=== PATIENT | male | born 1955 | race Caucasian/White ===

== ENCOUNTER 2020-07-05 18:32 | Emergency (ER) | payer SELFPAY ==
[2020-07-05] MEDS ORDERED: HYDROCODONE/ACETAMINOPHEN 10-325 MG TABLET PO ONE (20:11)
--- NOTE | 2020-07-05 21:02 | RADIOLOGY REPORT (SQ) ---
EXAM DESCRIPTION: XR FOREARM 2 VIEWS COMPLETED DATE/TME: 07/05/2020 20:13 CLINICAL HISTORY: 65 years, Male, fell on cement, +pain R shoulder/elbow/forearm COMPARISON: None. NUMBER OF VIEWS: 2 TECHNIQUE: Frontal and lateral radiograph are obtained LIMITATIONS: None. FINDINGS: Mild first CMC and triscaphe joint arthrosis is noted. Tiny ossific density is located adjacent to the triquetrum on the frontal projection which could indicate a tiny avulsion fracture fragment of uncertain age. There is also moderate radiocapitellar and ulnotrochlear joint arthrosis with several tiny ossific fragments located adjacent to the medial aspect of the ulnotrochlear joint, age-indeterminate. However, there is cortical disruption involving the posterior aspect of the distal humerus, indicative of a fracture. IMPRESSION: Partially imaged supracondylar fracture involving the distal humerus. Degenerative changes about the visualized portions of the elbow joint and wrist, as above. No definite acute fracture/dislocation involving the radius or ulna. copyright 2010 [employer]- All Rights Reserved
--- NOTE | 2020-07-05 21:05 | RADIOLOGY REPORT (SQ) ---
EXAM DESCRIPTION: XR right SHOULDER 2 VIEWS COMPLETED DATE/TME: 07/05/2020 20:13 CLINICAL HISTORY: 65 years, Male, fell on cement, +pain R shoulder/elbow/forearm COMPARISON: None. NUMBER OF VIEWS: TECHNIQUE: LIMITATIONS: None. FINDINGS: No fracture or dislocation. There are degenerative changes involving the acromioclavicular joint. IMPRESSION: No fracture or dislocation. copyright 2010 [employer]- All Rights Reserved
--- NOTE | 2020-07-05 21:08 | RADIOLOGY REPORT (SQ) ---
EXAM DESCRIPTION: XR right ELBOW 3 VIEWS COMPLETED DATE/TME: 07/05/2020 20:13 CLINICAL HISTORY: 65 years, Male, fell on cement, +pain R shoulder/elbow/forearm COMPARISON: None. NUMBER OF VIEWS: TECHNIQUE: LIMITATIONS: None. FINDINGS: There is fracture involving the distal humerus, with some lateral displacement. There are degenerative changes involving the elbow joint. Mineralization of bone appears normal. IMPRESSION: Fracture of the distal humerus. copyright 2010 [employer]- All Rights Reserved
--- NOTE | 2020-07-05 21:12 | ER Document Report ---
ED Medical Screen (RME) - General Chief Complaint: Fall Stated Complaint: FALL/RIGHT ARM,ELBOW PAIN Time Seen by Provider: 07/05/20 20:05 Primary Care Provider: GLADIS DURAND MD [Primary Care Provider] - Follow up as needed - [facility] Notes: 07/05/20 21:10 65-year-old male presents emergency room for complaints of right shoulder and elbow pain after he fell outside of a [employer] a few hours ago. No head trauma or change in level consciousness not, no blood thinners. No [id number] Tylenol or ibuprofen had been tried. Reports pain worse with movement, nothing makes better. Is not tried any heat or icing. Pain is 5 out of 5 PHYSICAL EXAMINATION: GENERAL: Well-appearing, well-nourished and in no acute distress. LUNGS: Breath sounds clear to auscultation bilaterally and equal. No wheezes rales or rhonchi. HEART: Regular rate and rhythm without murmurs Musculoskeletal: Normal range of motion, no pitting or edema. No cyanosis. Right shoulder pain with palpation. 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 swelling to right elbow, unable to extend right arm due to pain. radial pulses +2 in BUE. NEUROLOGICAL: Cranial nerves grossly intact. Normal speech, normal gait. Normal sensory, motor exams PSYCH: Normal mood, normal affect. SKIN: Warm, Dry, normal turgor, no rashes or lesions noted. - Related Data Allergies/Adverse Reactions: No Known Allergies Allergy (Verified 06/30/14 10:02) Past Medical History - Social History Chew tobacco use (# tins/day): No Frequency of alcohol use: None - Past Medical History Cardiac Medical History: Reports: Hx Heart Attack, Hx Hypercholesterolemia, Hx Hypertension Pulmonary Medical History: Reports: Hx COPD Past Surgical History: Reports: Hx Appendectomy - Immunizations Hx Diphtheria, Pertussis, Tetanus Vaccination: No Physical Exam - Vital signs Vitals: Temp Pulse Resp BP Pulse Ox 98.2 F 54 L 20 120/81 96 07/05/20 18:59 07/05/20 18:59 07/05/20 18:59 07/05/20 18:59 07/05/20 18:59 Course - Vital Signs Vital signs: Temp Pulse Resp BP Pulse Ox 98.1 F 57 L 17 112/71 95 07/05/20 20:00 07/05/20 20:00 07/05/20 20:00 07/05/20 20:00 07/05/20 20:00 Doctor's Discharge - Discharge Referrals: GLADIS DURAND MD [Primary Care Provider] - Follow up as needed
[2020-07-05] MEDS ORDERED: HYDROCODONE/ACETAMINOPHEN 5-325 MG (6 TAB/ER DISP) PO PRN (22:22)
[2020-07-05] MEDS ORDERED: ONDANSETRON ODT 4 MG TAB (6 TAB/ER DISP) PO PRN (22:23)
[2020-07-05] MEDS ORDERED: ONDANSETRON 4 MG TAB.RAPDIS PO ONE (22:32)
[2020-07-05 22:48] VITALS: BP 115/76
--- NOTE | 2020-07-06 01:44 | ER Document Report ---
Entered by CHIDI ADRIAN SCRIBE 07/05/202121 Acting as scribe for:NICOLE HEREDIA DO ED General - General Chief Complaint: Fall Stated Complaint: FALL/RIGHT ARM,ELBOW PAIN Time Seen by Provider: 07/05/20 20:05 Primary Care Provider: GLADIS DURAND MD [Primary Care Provider] - Follow up as needed JACKSON ALAN MD [ACTIVE STAFF] - 07/07/20 Information source: Patient Notes: This 65 year old male patient presents to the emergency department today with right elbow pain after a fall earlier today. Patient states his foot got caught on the pavement in a parking lot and he fell landing on his right elbow. Denies hitting his head or LOC. Denies pain in his bilateral lower extremities, left upper extremity, right shoulder and wrist, chest pain, or shortness of breath. Patient reports mild nausea and some dizziness. - Related Data Allergies/Adverse Reactions: No Known Allergies Allergy (Verified 06/30/14 10:02) Past Medical History - General Information source: Patient - Social History Smoking Status: Never Smoker Cigarette use (# per day): No Chew tobacco use (# tins/day): No Frequency of alcohol use: None Family History: Reviewed & Not Pertinent Patient has homicidal ideation: No - Past Medical History Cardiac Medical History: Reports: Hx Heart Attack, Hx Hypercholesterolemia, Hx Hypertension Pulmonary Medical History: Reports: Hx COPD Past Surgical History: Reports: Hx Appendectomy - Immunizations Hx Diphtheria, Pertussis, Tetanus Vaccination: No Review of Systems - Review of Systems Constitutional: No symptoms reported EENT: No symptoms reported Cardiovascular: See HPI, Dizziness. denies: Chest pain Respiratory: See HPI. denies: Short of breath Gastrointestinal: See HPI, Nausea - mild Genitourinary: No symptoms reported Male Genitourinary: No symptoms reported Musculoskeletal: See HPI, Joint pain - R elbow Skin: No symptoms reported Hematologic/Lymphatic: No symptoms reported Neurological/Psychological: No symptoms reported -: Yes All other systems reviewed and negative Physical Exam - Vital signs Vitals: Temp Pulse Resp BP Pulse Ox 98.2 F 54 L 20 120/81 96 07/05/20 18:59 07/05/20 18:59 07/05/20 18:59 07/05/20 18:59 07/05/20 18:59 - General General appearance: Appears well, Alert - HEENT Head: Normocephalic, Atraumatic Eyes: Normal Pupils: PERRL - Respiratory Respiratory status: No respiratory distress Chest status: Nontender Breath sounds: Normal Chest palpation: Normal - Cardiovascular Rhythm: Regular Heart sounds: Normal auscultation Murmur: No - Abdominal Inspection: Obese Distension: No distension Bowel sounds: Normal Tenderness: Nontender - Back Back: Normal, Nontender - Extremities General lower extremity: Normal inspection. No: Edema Notes: Moderate sized hematoma on the right elbow with some joint effusion and ecchymosis. No lacerations. Distal sensation intact. Brisk capillary refill distally. Limited ROM of the RUE due to pain. No tenderness with palpation to the right hand, wrist, or shoulder. Normal inspection of LUE. - Neurological Neuro grossly intact: Yes Cognition: Normal Orientation: AAOx4 [place] Coma Scale Eye Opening: Spontaneous [place] Coma Scale Verbal: Oriented [place] Coma Scale Motor: Obeys Commands [place] Coma Scale Total: 15 Speech: Normal - Psychological Associated symptoms: Normal affect, Normal mood - Skin Skin Temperature: Warm Skin Moisture: Dry Skin Color: Normal Course - Re-evaluation Re-evalutation: 07/05/20 22:15 MDM 65 year old right handed male caught his foot while walking and fell onto his right arm/ side a short time prior to arrival. Metaphaseal humerus fx. No wrist or shoulder pain. Splinted and exam after splint NVI and wrist and hand are warm with good movement and nl cap refill. - Vital Signs Vital signs: Temp Pulse Resp BP Pulse Ox 98.4 F 62 18 115/76 98 07/05/20 22:46 07/05/20 22:46 07/05/20 22:46 07/05/20 22:46 07/05/20 22:46 Discharge - Discharge Clinical Impression: Supracondylar fracture of humerus Qualifiers: Encounter type: initial encounter Fracture type: closed Laterality: right Qualified Code(s): S42.411A - Displaced simple supracondylar fracture without intercondylar fracture of right humerus, initial encounter for closed fracture Condition: Good Disposition: HOME, SELF-CARE Instructions: Ice & Elevation ([facility]), Ice Packs ([facility]), Supracondylar Fracture of the Elbow ([facility]) Additional Instructions: See Dr. Alan in follow up at 0800. Please return here for increased pain, persistent vomiting, or other problems or concerns. Referrals: GLADIS DURAND MD [Primary Care Provider] - Follow up as needed JACKSON ALAN MD [ACTIVE STAFF] - 07/07/20 I personally performed the services described in the documentation, reviewed and edited the documentation which was dictated to the scribe in my presence, and it accurately records my words and actions.
== END 2020-07-05 22:46 | disposition home or self-care (01) ==
LOC: ER 18:32
DX: S42.411A Displaced simple supracondylar fracture without intercondylar fracture of right humerus, initial encounter for closed fracture (principal); W01.0XXA Fall on same level from slipping, tripping and stumbling without subsequent striking against object, initial encounter; Y92.481 Parking lot as the place of occurrence of the external cause; R11.0 Nausea; R42 Dizziness and giddiness; I10 Essential (primary) hypertension; I25.2 Old myocardial infarction; J44.9 Chronic obstructive pulmonary disease, unspecified
CPT/HCPCS: 99284; 73080; 73090; 73030; 29105; S0119

== ENCOUNTER 2020-07-12 11:59 | Day surgery (SDC) | payer SELFPAY ==
[~2020-07-12 11:59] MED LIST: CEFAZOLIN 2 GM/D5W RTU 2 GM/50 ML RTUPB IV PRN; SUCCINYLCHOLINE CHLORIDE INJ 200 MG/10 ML VIAL ONE
[2020-07-12] MEDS ORDERED: CEFAZOLIN 2 GM/D5W RTU 2 GM/50 ML RTUPB IV ONE (12:06)
--- NOTE | 2020-07-12 12:44 | PDOC PROGRESS REPORT ---
Subjective Progress Note for:: 07/12/20 Subjective:: Patient sustained a fall onto his right elbow resulting in a right lateral condyle fracture. Patient was seen in the office at which point treatment options were discussed including operative versus nonoperative intervention details of x-rays were also explained at that time. After discussing risk and benefits decision was made to proceed with operative intervention. Patient denied antecedent right elbow pain prior to his fall. Reason For Visit: S42.451A DISP FX OF LATERAL CONDYLE OF RIGHT HUMER Physical Exam Vital Signs: Intake & Output 07/11/20 07/12/20 07/13/20 06:59 06:59 06:59 Weight 154.2 kg General appearance: PRESENT: no acute distress, obese, well-developed, well- nourished Head exam: PRESENT: atraumatic, normocephalic Eye exam: PRESENT: conjunctiva pink, EOMI, PERRLA. ABSENT: scleral icterus Ear exam: PRESENT: normal external ear exam Mouth exam: PRESENT: moist, tongue midline Neck exam: PRESENT: full ROM. ABSENT: carotid bruit, JVD, lymphadenopathy, thyromegaly Cardiovascular exam: PRESENT: RRR. ABSENT: diastolic murmur, rubs, systolic murmur Pulses: PRESENT: normal dorsalis pedis pul, +2 pedal pulses bilateral Vascular exam: PRESENT: normal capillary refill GI/Abdominal exam: PRESENT: normal bowel sounds, soft. ABSENT: distended, guarding, mass, organolmegaly, rebound, tenderness Rectal exam: PRESENT: deferred Extremities exam: PRESENT: other - Right elbow: Swelling/ecchymosis along the distal humerus and upper forearm. Tenderness along the lateral condyle. No evidence of deformity. No sensory deficit. Full range of motion of the MP/IP joints. EPL/FPL intact. Neurological exam: PRESENT: alert, awake, oriented to person, oriented to place, oriented to time, oriented to situation, CN II-XII grossly intact. ABSENT: motor sensory deficit Psychiatric exam: PRESENT: appropriate affect, normal mood. ABSENT: homicidal ideation, suicidal ideation Skin exam: PRESENT: dry, intact, warm. ABSENT: cyanosis, rash Assessment & Plan - Diagnosis (1) Supracondylar fracture of humerus Qualifiers: Encounter type: subsequent encounter Laterality: right Is this a current diagnosis for this admission?: Yes Plan: Patient sustained a right lateral condyle fracture radiographs are consistent with degenerative changes throughout the ulnohumeral and radiocapitellar joint. Despite the degenerative changes there is notable displacement of the fracture and thus decision was made to proceed with operative intervention. Patient understands the limitations of surgery including persistent pain and substantial increase of his arthritis which may become more symptomatic resulting in posttraumatic arthritis and further stiffness. I discussed instrument options decision was made to proceed with operative intervention. - Time Time Spent with patient: Less than 15 minutes
[2020-07-12] MEDS ORDERED: ROPIVACAINE HCL 0.5% INJ/PF (5 MG/1 ML) 30 ML SDV ONE (14:03)
[2020-07-12] MEDS ORDERED: MIDAZOLAM 2 MG/2 ML INJ ONE (14:03)
[2020-07-12] MEDS ORDERED: FENTANYL CITRATE INJ/PF 100 MCG/2 ML AMPUL ONE ×3 (14:03→17:34)
[2020-07-12 14:27] LABS: ANION GAP 12 (5-19); BLOOD UREA NITROGEN 29 mg/dL (7-20); CALCIUM 9.8 mg/dL (8.4-10.2); CARBON DIOXIDE 28 mmol/L (22-30); CHLORIDE 96 mmol/L (98-107); GLUCOSE 157 mg/dL (75-110); POTASSIUM 3.7 mmol/L (3.6-5.0)
[2020-07-12] MEDS ORDERED: DEXAMETHASONE SOD PHOSPHATE INJ 4 MG/1 ML VIAL ONE (14:57)
[2020-07-12] MEDS ORDERED: ONDANSETRON HCL INJ/PF 4 MG/2 ML SDV ONE (14:57)
[2020-07-12] MEDS ORDERED: PROPOFOL INJ 200 MG/20 ML VIAL IV ONE (14:57)
[2020-07-12] MEDS ORDERED: FENTANYL CITRATE INJ/PF 100 MCG/2 ML AMPUL IV PRN ×3 (15:46)
[2020-07-12] MEDS ORDERED: DIPHENHYDRAMINE HCL 50 MG/ML VIAL IV PRN (15:46)
[2020-07-12] MEDS ORDERED: OXYCODONE-ACETAMINOPHEN 5-325 MG TABLET PO PRN ×3 (15:46→17:11)
[2020-07-12] MEDS ORDERED: PROMETHAZINE HCL INJ 25 MG/1 ML VIAL IV PRN ×2 (15:46)
[2020-07-12] MEDS ORDERED: MORPHINE SULFATE 10 MG/ML INJ IV PRN ×2 (15:46→17:11)
[2020-07-12] MEDS ORDERED: MEPERIDINE HCL/PF INJ 25 MG/1 ML DISP.SYRIN IV PRN (15:46)
[2020-07-12] MEDS ORDERED: ONDANSETRON HCL INJ/PF 4 MG/2 ML SDV IV PRN (17:11)
--- NOTE | 2020-07-12 17:11 | Discharge Summary ---
Discharge Summary (SDC) - Discharge Final Diagnosis: Right lateral condyle fracture Date of Surgery: 07/12/20 Discharge Date: 07/12/20 Condition: Good Treatment or Instructions: Schedule Follow Up w/ Dr. Shimon Pena @ [facility] for [facility] to be seen in 10-14 days or as scheduled [place]: [place]: [place]: Ice and elevate Keep splint clean/dry/intact, do not remove. If your fingers become numb please unwrap the Des wrap but leave the splint in place, if the sensation does not return within 30 minutes please return to the emergency department. May begin finger range of motion attempting to make full fist. Please use ibuprofen (Motrin or Advil) 600-800 mg every 8 hours as needed for pain or fever DO NOT TAKE w/ TORADOL may use once TORADOL complete. You may also use acetaminophen (Tylenol) 1000 mg every 4-6 hours as needed for pain or fever. Please be aware that many medications contain acetaminophen, do not exceed a total of 1000 mg of acetaminophen every 6 hours. If ibuprofen and acetaminophen are not sufficient for your pain you may take the Percocet/[place]. Please be aware that the Percocet/[place] does contain Tylenol. Stool softener of choice when on pain medication. USE OF [id number] IBUPROFEN: Ibuprofen (Advil, Nuprin, Medipren, Motrin IB) is a medication for fever and pain control. In addition, it has anti- inflammatory effects which may be beneficial, especially in the treatment of injuries. It's best to take ibuprofen with food. Persons with ulcer disease or allergy to aspirin should notify their physician of this before taking ibuprofen. Ibuprofen can be given every four to six hours, for a total of four doses daily. Age Pain or fever dose Antiinflammatory dose 6-8 yr 200 mg (1 tab) 200 mg (1 tab) 9-11 yr 200 mg (1 tab) 200-400 mg (1-2 tab) 11-14 yr 200-400 mg (1-2 tab) 400 mg (2 tab) 15-adult 400 mg (2 tab) 600 mg (3 tab) ORAL NARCOTIC MEDICATION: You have been given a prescription for pain control. This medication is a narcotic. It's best taken with food, as nausea can result if taken on an empty stomach. Don't operate machinery or drive within six hours of taking this medication. Do not combine this medicine with alcohol, or with any medication which can cause sedation (such as cold tablets or sleeping pills) unless you get permission from the physician. Narcotics tend to cause constipation. If possible, drink plenty of fluids and eat a diet high in fiber and fruits. Please be aware that prescription narcotics also have the potential for abuse. People become addicted to these medications because of the general sense of wellbeing that they induce. This feeling along with a significant reduction in tension, anxiety, and aggression provides a stimulating seductive quality to these drugs. Once your pain is under control, we encourage you to discard your unused narcotics. Prescriptions: Oxycodone HCl/Acetaminophen [Percocet 5-325 mg Tablet] 1 tab PO Q6 PRN #25 tab PRN Reason: Referrals: GLADIS DURAND MD [Primary Care Provider] - Discharge Diet: As Tolerated Respiratory Treatments at Home: Deep Breathing/Coughing, Incentive Spirometer Discharge Activity: No Lifting Over 10 Pounds, No Lifting/Push/Pulling Report the Following to Your Physician Immediately: Fever over 101 Degrees, Unusual Bleeding, Redness, Swelling, Warmth, Increased Soreness
--- NOTE | 2020-07-12 17:15 | Operative Report ---
Operative Report DATE OF SURGERY: 07/12/20 PREOPERATIVE DIAGNOSIS: Right distal humerus intra-articular lateral condyle fr acture POSTOPERATIVE DIAGNOSIS: Same OPERATION: ORIF right distal humerus intra-articular lateral condyle fracture SURGEON: TRISH DOUGLAS ANESTHESIA: GA COMPLICATIONS: None ESTIMATED BLOOD LOSS: Minimal PROCEDURE: Indication for above procedure: 65-year-old male who sustained a fall onto his right elbow resulting in a right lateral condyle fracture. Patient was seen in the office at which point treatment options were discussed including operative versus nonoperative intervention details of x-rays were also explained at that time. After discussing risk and benefits decision was made to proceed with operative inte rvention. Procedure In Detail: Patient was seen and evaluated in the preoperative holding area. The RIGHT upper extremity was initialized and marked. Patient received 2g of Ancef IV for bacterial prophylaxis. Patient was taken back to the operative room where transferred to the operative table and placed under general anesthesia. Once they were adequately anesthetized a nonsterile tourniquet was placed on the upper extremity. A surgical team debriefing was performed ensuring all instrumentation was available, the surgical procedure was discussed with possible concerns reviewed. The upper extremity was prepped with ChloraPrep and draped in a sterile fashion. A timeout was done identifying correct patient, procedure and extremity everyone in attendance agree with this and verbalized no concerns. The extremity was exsanguinated the tourniquet was inflated to 250 mmHg. Lateral skin incision was utilized. Blunt dissection was performed. Posterior cutaneous nerve of the forearm was identified within the skin flap. There was disruption of the mobile wad muscle belly which was avulsed from the lateral aspect of the humerus and lateral epicondyle. Meticulous blunt dissection was performed and the radial nerve was identified along the anterior aspect of the humerus entering the mobile wad. Any peripheral veins were coagulated bipolar cautery. Soft tissue was then elevated from the lateral condyle. Under direct visualization the lateral condyle was reduced. K wire was placed perpendicular to the fracture site along the articular surface under direct visualization the articular surface was noted anteriorly to ensure no evidence of penetration through the articular surface. Second K wire was then placed from distal to proximal in an oblique manner perpendicular to the fracture. A Nasima 3.5 mm partially-threaded screw was then inserted which provided excellent interfragmentary compression. Once articular surface was reduced and provisional fixation was obtained with K wires the [place] lateral humerus plate was then placed initial fixation was obtained with K wires. The plate was then confirmed along the appropriate position. A fully threaded cortex screw was placed across the articular surface once again under direct visualization there was no evidence of articular penetration. Fixation was then obtained proximally with a bicortical screw w hile protecting the radial nerve. Additional bicortical screw was placed proximally along with a locking screw. Fixation was then completed distally with 2 additional locking screws. Wound was copiously irrigated with normal saline. Elbow was placed through full range of motion no evidence of crepitus with range of motion. No evidence of impingement along the olecranon fossa. Tourniquet was then deflated and peripheral bleeding was controlled with bipolar cautery. Mobile wad muscle belly and fascia was closed with interrupted 0 Vicryl suture. Subcutaneous tissues were closed with interrupted 3-0 Monocryl suture. Skin was closed with terry. Patient was placed in a posterior splint. Sponge counts, instrument counts, needle counts were correct. Patient was then awoken from anesthesia. Transferred from the operating room table to the operating room stretcher. There was no intraoperative complications patient tolerated procedure well stable to PACU. Postop plan: Patient will follow in the office in 2 weeks at which point we will obtain radiographs. Patient will continue posterior splint until 4 weeks postoperatively and then begin range of motion exercises.
--- NOTE | 2020-07-12 18:50 | EKG REPORT ---
SEVERITY:- ABNORMAL ECG - SINUS BRADYCARDIA. NONSPECIFIC IVCD WITH LAD : Confirmed by: Vernon Ramirez MD 12-Jul-2020 18:50:04
[2020-07-12 19:33] VITALS: BP 139/61
--- NOTE | 2020-07-13 10:46 | RADIOLOGY REPORT (SQ) ---
EXAM DESCRIPTION: HUMERUS RIGHT; NO CHG FLUORO IMAGES COMPLETED DATE/TIME: 07/12/2020 6:42 pm REASON FOR STUDY: ORIF R HUMERUS S42.451A DISP FX OF LATERAL CONDYLE OF RIGHT HUMERUS, INIT COMPARISON: 07/05/2020. FLUOROSCOPY TIME: 0.4 minutes. 3 images saved to PACS. TECHNIQUE: Intra-operative images acquired during surgical procedure to evaluate progress. NUMBER OF IMAGES: 3 images. LIMITATIONS: None. FINDINGS: Images acquired during surgical fixation. IMPRESSION: IMAGE(S) OBTAINED DURING PROCEDURE. COMMENT: Quality ID 145: Final reports for procedures using fluoroscopy that document radiation exp osure indices, or exposure time and number of fluorographic images (if radiation exposure indices are not available) Please consult full operative report of the attending physician for description of the procedure. TECHNICAL DOCUMENTATION: JOB ID: [id number] 2010 [employer]- All Rights Reserved Reading location - IP/workstation name: [email or web address]
--- NOTE | 2020-07-13 10:46 | RADIOLOGY REPORT (SQ) ---
EXAM DESCRIPTION: HUMERUS RIGHT; NO CHG FLUORO IMAGES COMPLETED DATE/TIME: 07/12/2020 6:42 pm REASON FOR STUDY: ORIF R HUMERUS S42.451A DISP FX OF LATERAL CONDYLE OF RIGHT HUMERUS, INIT COMPARISON: 07/05/2020. FLUOROSCOPY TIME: 0.4 minutes. 3 images saved to PACS. TECHNIQUE: Intra-operative images acquired during surgical procedure to evaluate progress. NUMBER OF IMAGES: 3 images. LIMITATIONS: None. FINDINGS: Images acquired during surgical fixation. IMPRESSION: IMAGE(S) OBTAINED DURING PROCEDURE. COMMENT: Quality ID 145: Final reports for procedures using fluoroscopy that document radiation exp osure indices, or exposure time and number of fluorographic images (if radiation exposure indices are not available) Please consult full operative report of the attending physician for description of the procedure. TECHNICAL DOCUMENTATION: JOB ID: [id number] 2010 [employer]- All Rights Reserved Reading location - IP/workstation name: [email or web address]
== END 2020-07-12 19:10 | disposition home or self-care (01) ==
LOC: OROUT 11:59
PROVIDERS: ATTEND Orthopaedic Surgery
DX: S42.451A Displaced fracture of lateral condyle of right humerus, initial encounter for closed fracture (principal); W19.XXXA Unspecified fall, initial encounter; Y92.512 Supermarket, store or market as the place of occurrence of the external cause; I10 Essential (primary) hypertension; E78.5 Hyperlipidemia, unspecified; E66.9 Obesity, unspecified; M19.021 Primary osteoarthritis, right elbow; F17.210 Nicotine dependence, cigarettes, uncomplicated; Z79.899 Other long term (current) drug therapy
CPT/HCPCS: 24579; 36415; 80048; 73060; 93005; 93010; 99140; 64415; 76942; 01740; C1713 ×9; J2795; J2250; J1100; J3010; J0330; J2405; J2704; J0690